=== PATIENT | male | born 1980 | race African-American/Black ===

== ENCOUNTER 2024-07-28 11:37 | Emergency (ER) | payer MEDICAID ==
[~2024-07-28] VITALS: Ht 180.3 cm; Wt 61.2 kg
[2024-07-28 11:57] VITALS: O2SAT 98
[2024-07-28] MEDS ORDERED: IBUP-1523 MT (15:09)
[2024-07-28] MEDS ORDERED: DEXT30SU17 MT (15:09)
[2024-07-28] MEDS ORDERED: TOPUD MT (15:09)
[2024-07-28] MEDS ORDERED: ALBU90AE INH (15:09)
[2024-07-28] MEDS ORDERED: AZIT250T12 MT (15:09)
[2024-07-28 16:19] VITALS: BP 114/67; PULSE 88; RESP 16; TEMP 36.94740; O2SAT 98
== END 2024-07-28 16:18 | disposition home or self-care (01) ==
LOC: ER 11:37
DX: J20.9 Acute bronchitis, unspecified (principal); Z79.899 Other long term (current) drug therapy
CPT/HCPCS: 99281

== ENCOUNTER 2025-02-23 14:42 | Emergency (ER) | payer MEDICAID ==
[~2025-02-23] VITALS: Ht 165.1 cm; Wt 60.0 kg
[~2025-02-23 14:42] MED LIST: ALBU90AE INH; AZIT250T12 MT; DEXT30SU17 MT; IBUP-1523 MT; TOPUD MT
[2025-02-23 14:44] VITALS: O2SAT 98
[2025-02-23] MEDS: TETANUS, DIPHTHERIA, PERTUSSIS VAC/PF 0.5ML (>10YR OLD) IM ONE (15:34)
[2025-02-23] MEDS: IBUPROFEN 400MG TABLET PO ONE (18:35)
[2025-02-23] MEDS: ACETAMINOPHEN 325MG TABLET PO ONE (18:35)
[2025-02-23 18:36] VITALS: BP 122/86; PULSE 82; RESP 16; TEMP 36.8; O2SAT 98
== END 2025-02-23 18:37 | disposition home or self-care (01) ==
LOC: ER 14:42
DX: S01.412A Laceration without foreign body of left cheek and temporomandibular area, initial encounter (principal); E11.9 Type 2 diabetes mellitus without complications; I10 Essential (primary) hypertension; J45.909 Unspecified asthma, uncomplicated; W19.XXXA Unspecified fall, initial encounter; Y93.89 Activity, other specified; Y92.89 Other specified places as the place of occurrence of the external cause; Y99.8 Other external cause status
CPT/HCPCS: 70450; 90715; 12011; 90471; 99285; Z7610